=== PATIENT | male | born 1940 | race Caucasian/White ===

== ENCOUNTER → 2021-09-01 10:36 | Outpatient (CLI) | payer OTHER, SELFPAY ==
[2021-09-01 11:50] LABS: Add Manual Diff / Slide Review NO; Basophils Absolute Auto 0 /uL (0-100); Basophils Percent Auto 0.2 % (0-2); Eosinophils Absolute Auto 100 /uL (0-450); Eosinophils Percent Auto 0.9 % (2-4); Hematocrit 38.8 % (41-53); Hemoglobin 13.2 g/dL (13.5-17.5); Lymphocytes Absolute Auto 1000 /uL (1100-4500); Lymphocytes Percent Auto 16.2 % (25-40); Mean Corpuscular HGB Conc 33.9 % (30-36); Mean Corpuscular Hemoglobin 32.8 PG (26-34); Mean Corpuscular Volume 96.9 fL (80-100); Monocytes Absolute Auto 400 /uL (0-900); Monocytes Percent Auto 6.6 % (3-14); Neutrophils Absolute Auto 4500 /uL (1500-7000); Neutrophils Percent Auto 76.1 % (50-75); Platelet Count 126 X10^3/uL (150-400); Red Blood Cell Count 4.01 X10^6/uL (4.5-5.9); Red Cell Distribution Width 12.9 % (11.6-14.8); White Blood Cell Count 5.9 X10^3/uL (4.5-11.0)
[2021-09-01 12:03] LABS: Hemoglobin A1C% w Est Avg Glu 5.6 % (4.0-6.0)
[2021-09-01 12:04] LABS: Alanine Aminotransferase 18 IU/L (<50); Albumin 4.1 g/dL (3.5-5.0); Albumin Globulin Ratio 1.3 (1.0-2.8); Alkaline Phosphatase 71 U/L (38-126); Aspartate Aminotransferase 22 IU/L (17-59); BUN Creatinine Ratio 17.2 (6-22); Bilirubin Total 0.4 mg/dL (0.2-1.3); Blood Urea Nitrogen 17 mg/dL (9-20); Calcium 9.2 mg/dL (8.4-10.2); Carbon Dioxide 32 mmol/L (22-32); Chloride 102 mmol/L (98-107); Cholesterol 145 mg/dL (140-199); Estimated Glomerular Filt Rate > 60.0 mL/min (>60); Globulin 3.1 g/dL (1.7-4.1); Glucose 110 mg/dL (80-110); HDL Cholesterol 35 mg/dL (40-60); HEMOLYSIS < 15 (0-50); LDL Cholesterol Calculated 79 mg/dL (<100); Potassium 4.1 mmol/L (3.4-5.1); Sodium 142 mmol/L (137-145); Total Protein 7.2 g/dL (6.3-8.2); Triglycerides 154 mg/dL (35-150)
[2021-09-09 03:02] LABS: Levetiracetam Keppra < 1.0 ug/mL (10.0-40.0)
== END ==
PROVIDERS: Referring Provider Family Medicine; Visit Provider Family Medicine
DX: R56.9 Unspecified convulsions (principal); E78.2 Mixed hyperlipidemia; R73.01 Impaired fasting glucose
CPT/HCPCS: 36415; 80053; 80061; 80177; 83036; 85025

== ENCOUNTER → 2022-09-14 06:13 | Outpatient (ROUT) | payer OTHER, SELFPAY ==
[2022-09-14 06:51] LABS: Add Manual Diff / Slide Review NO; Basophils Absolute Auto 0 /uL (0-100); Basophils Percent Auto 0.4 % (0-2); Eosinophils Absolute Auto 100 /uL (0-450); Eosinophils Percent Auto 1.8 % (2-4); Hematocrit 35.7 % (41-53); Hemoglobin 12.2 g/dL (13.5-17.5); Lymphocytes Absolute Auto 700 /uL (1100-4500); Mean Corpuscular HGB Conc 34.1 % (30-36); Mean Corpuscular Hemoglobin 32.5 PG (26-34); Mean Corpuscular Volume 95.5 fL (80-100); Monocytes Absolute Auto 400 /uL (0-900); Monocytes Percent Auto 8.1 % (3-14); Neutrophils Absolute Auto 4100 /uL (1500-7000); Neutrophils Percent Auto 76.7 % (50-75); Platelet Count 108 X10^3/uL (150-400); Red Blood Cell Count 3.74 X10^6/uL (4.5-5.9); Red Cell Distribution Width 12.8 % (11.6-14.8); White Blood Cell Count 5.4 X10^3/uL (4.5-11.0)
[2022-09-14 07:01] LABS: Alanine Aminotransferase 39 IU/L (<50); Albumin 3.6 g/dL (3.5-5.0); Albumin Globulin Ratio 1.1 (1.0-2.8); Alkaline Phosphatase 72 U/L (38-126); Aspartate Aminotransferase 94 IU/L (17-59); BUN Creatinine Ratio 25.8 (6-22); Bilirubin Total 0.6 mg/dL (0.2-1.3); Blood Urea Nitrogen 23 mg/dL (9-20); Calcium 8.4 mg/dL (8.4-10.2); Carbon Dioxide 26 mmol/L (22-32); Chloride 101 mmol/L (98-107); Estimated Glomerular Filt Rate > 60 mL/min (>60); Globulin 3.2 g/dL (1.7-4.1); Glucose 99 mg/dL (80-110); HEMOLYSIS < 15 (0-50); Potassium 3.4 mmol/L (3.4-5.1); Sodium 137 mmol/L (137-145); Total Protein 6.8 g/dL (6.3-8.2)
[2022-09-14 07:46] LABS: Thyroid Stimulating Hormone 2.66 uIU/mL (0.47-4.68)
[2022-09-14 07:49] LABS: Vitamin B12 347 pg/mL (239-931)
== END ==
PROVIDERS: Visit Provider Nurse Practitioner Family
DX: R41.0 Disorientation, unspecified (principal)
CPT/HCPCS: 36415; 80053; 82607; 84443; 85025

== ENCOUNTER → 2023-06-07 07:19 | Outpatient (ROUT) | payer OTHER, SELFPAY ==
[2023-06-07 08:24] LABS: Add Manual Diff / Slide Review NO; Basophils Absolute Auto 0 /uL (0-100); Basophils Percent Auto 0.3 % (0-2); Eosinophils Absolute Auto 100 /uL (0-450); Eosinophils Percent Auto 1.9 % (2-4); Hematocrit 35.6 % (41-53); Hemoglobin 12.4 g/dL (13.5-17.5); Lymphocytes Absolute Auto 900 /uL (1100-4500); Lymphocytes Percent Auto 12.8 % (25-40); Mean Corpuscular HGB Conc 34.8 % (30-36); Mean Corpuscular Hemoglobin 32.7 PG (26-34); Mean Corpuscular Volume 93.9 fL (80-100); Monocytes Absolute Auto 500 /uL (0-900); Monocytes Percent Auto 7.4 % (3-14); Neutrophils Absolute Auto 5300 /uL (1500-7000); Neutrophils Percent Auto 77.6 % (50-75); Platelet Count 116 X10^3/uL (150-400); Red Blood Cell Count 3.79 X10^6/uL (4.5-5.9); Red Cell Distribution Width 13.2 % (11.6-14.8); White Blood Cell Count 6.8 X10^3/uL (4.5-11.0)
[2023-06-07 08:36] LABS: Alanine Aminotransferase 19 IU/L (<50); Albumin 3.9 g/dL (3.5-5.0); Albumin Globulin Ratio 1.3 (1.0-2.8); Alkaline Phosphatase 94 U/L (38-126); Aspartate Aminotransferase 22 IU/L (17-59); BUN Creatinine Ratio 21.5 (6-22); Bilirubin Total 0.4 mg/dL (0.2-1.3); Blood Urea Nitrogen 23 mg/dL (9-20); Calcium 8.6 mg/dL (8.4-10.2); Carbon Dioxide 29 mmol/L (22-32); Chloride 104 mmol/L (98-107); Estimated Glomerular Filt Rate > 60 mL/min (>60); Globulin 3.1 g/dL (1.7-4.1); Glucose 98 mg/dL (80-110); HEMOLYSIS < 15 (0-50); Sodium 138 mmol/L (137-145)
[2023-06-07 09:00] LABS: Thyroid Stimulating Hormone 2.98 uIU/mL (0.47-4.68)
[2023-06-07 09:20] LABS: Vitamin B12 396 pg/mL (239-931)
== END ==
PROVIDERS: Visit Provider Nurse Practitioner Family
DX: F03.90 Unspecified dementia, unspecified severity, without behavioral disturbance, psychotic disturbance, mood disturbance, and anxiety (principal); R41.0 Disorientation, unspecified; R53.83 Other fatigue
CPT/HCPCS: 36415; 80053; 82306; 82607; 84443; 85025

== ENCOUNTER → 2024-07-24 06:08 | Outpatient (ROUT) | payer OTHER, SELFPAY ==
[2024-07-24 07:08] LABS: Hemoglobin 11.7 g/dL (13.5-17.5); Mean Corpuscular HGB Conc 34.5 % (30-36); Mean Corpuscular Hemoglobin 31.2 PG (26-34); Mean Corpuscular Volume 90.3 fL (80-100); Platelet Count 163 X10^3/uL (150-400); Red Blood Cell Count 3.77 X10^6/uL (4.5-5.9); Red Cell Distribution Width 14.4 % (11.6-14.8); White Blood Cell Count 6.6 X10^3/uL (4.5-11.0)
[2024-07-24 07:13] LABS: Alanine Aminotransferase 26 IU/L (<50); Albumin 3.3 g/dL (3.5-5.0); Alkaline Phosphatase 82 U/L (38-126); Aspartate Aminotransferase 27 IU/L (17-59); BUN Creatinine Ratio 20.6 (6-22); Bilirubin Total 0.5 mg/dL (0.2-1.3); Blood Urea Nitrogen 20 mg/dL (9-20); Carbon Dioxide 27 mmol/L (22-32); Chloride 103 mmol/L (98-107); Estimated Glomerular Filt Rate > 60 mL/min (>60); Globulin 3.2 g/dL (1.7-4.1); Glucose 93 mg/dL (80-110); HEMOLYSIS 20 (0-50); Sodium 134 mmol/L (137-145); Total Protein 6.5 g/dL (6.3-8.2)
[2024-07-24 07:44] LABS: Thyroid Stimulating Hormone 2.77 uIU/mL (0.47-4.68)
[2024-07-24 19:47] LABS: Vitamin B12 469 pg/mL (239-931)
== END ==
PROVIDERS: Visit Provider Nurse Practitioner Family
DX: R41.0 Disorientation, unspecified (principal)
CPT/HCPCS: 36415; 80053; 82607; 84443; 85027

== ENCOUNTER 2024-10-06 04:53 | Inpatient (IN) | payer OTHER, SELFPAY ==
[2024-10-06] VITALS (10 sets, daily range): BP systolic 122–147; BP diastolic 74–90; PULSE 77–100; RESP 15–20; TEMP 36.5–36.6; O2SAT 92–94; BMI 28.0
--- NOTE | 2024-10-06 04:52 | ED.AMS ---
HPI - Altered Mental Status General Chief Complaint: Unresponsive Stated Complaint: unresponsive Time Seen by Provider: 10/06/24 05:09 History of Present Illness HPI narrative: 83-year-old male with a history of CVA with left-sided hemiplegia hemiparesis presents to the emergency department via EMS from facility for evaluation of altered mental status possible stroke. They states that 1 hour prior to arrival patient was unresponsive not responding to verbal stimuli but responding to painful stimuli GCS 9. States that there was also new facial droop according to the facility. At time of evaluation patient with left-sided residual hemiparesis hemiplegia, no appreciable left facial droop, patient is responding to painful stimuli to the bilateral lower extremities as well as right upper extremity, patient does open eyes to verbal stimuli. Additional ROS HPI limited given patient's mental status change. Review of Systems Review of Systems ROS Unobtainable: Unobtainable due to mental status/LOC Exam Narrative Exam Narrative: General: Elderly HEENT: Normocephalic, atraumatic, PERRLA, normal sclera, eyelids normal, Neck: atraumatic Chest: Normal to inspection, negative crepitus, no overlying erythema ecchymosis Respiratory: Normal respiratory effort, not in acute respiratory distress, clear to auscultation bilaterally negative cough, wheeze, tachypnea, rhonchi, rales Cardiology: Regular rate rhythm negative gallop, murmur, rubs GI/: Normal to inspection, soft, nonrigid, no tenderness to palpation, exam deferred MSK: Patient with left-sided upper and lower extremity residual deficits from previous stroke, Skin: No rashes lesions noted Neuro: Patient responding to painful stimuli to bilateral right and lower extremity. Opening eyes to sound, does make some mumbling Psych: Cooperative, negative suicidal or homicidal ideations Initial Vital Signs Initial Vital Signs: Vital Signs Temperature 97.7 F 10/06/24 04:54 Pulse Rate 99 H 10/06/24 04:54 Respiratory Rate 16 10/06/24 04:54 Blood Pressure 147/81 H 10/06/24 04:54 Pulse Oximetry 93 10/06/24 04:54 Oxygen Delivery Method Room Air 10/06/24 04:54 Scores NIH Stroke Scale Level of Conciousness: Not alert, requires repeated stimulation to attend, or is obtunded Ask month/age: Answers neither question correctly, aphasic, stuporous, coma Open/close eyes, close hand: Performs one task correctly Best gaze horizontal: Normal Visual romero: No visual loss Facial palsy: Minor paralysis, flattened nasolabial fold, asymmetry on smiling Left arm drift: Drifts down, not to bed Right arm drift: Drifts down, not to bed Left leg drift: Drifts down, not to bed Right leg drift: Drifts down, not to bed Limb ataxia: Absent Sensory on face/arms/legs: Normal, no sensory loss Best language: Mute, global aphasia Dysarthria: Mild to mod,some slurring Extinction or inattention: No abnormality Total NIH Stroke scale score: 14 Course Orders Ordered: ED Orders 10/06/24 04:55 Complete Blood Count AUTO DIFF Stat Comprehensive Metabolic Panel Stat Ethanol (ETOH) Stat PTT Partial Thromboplastin Pieter Stat Prothrombin Time INR Stat Troponin & CK Cardiac Panel Stat 10/06/24 05:[address] angio head and neck Stat Urinalysis and Microscopic Stat Urine Drug Screen, Rapid Stat EKG-12 Lead Stat Vital Signs Vital signs: Vital Signs - 8 hr 10/06/24 04:54 10/06/24 04:57 10/06/24 04:58 Temperature 97.7 F Pulse Rate 99 H 100 H 100 H Respiratory Rate 16 Blood Pressure 147/81 H Pulse Oximetry 93 92 92 Oxygen Delivery Method Room Air 10/06/24 04:58 10/06/24 05:00 10/06/24 05:00 Temperature Pulse Rate 93 H Respiratory Rate 15 Blood Pressure 147/81 H 131/76 Pulse Oximetry 92 Oxygen Delivery Method 10/06/24 05:25 10/06/24 05:25 10/06/24 05:30 Temperature Pulse Rate 92 H 91 H Respiratory Rate 19 20 Blood Pressure 140/74 Pulse Oximetry 93 92 Oxygen Delivery Method 10/06/24 05:37 10/06/24 05:37 10/06/24 06:00 Temperature Pulse Rate 90 88 Respiratory Rate 18 16 Blood Pressure 122/81 Pulse Oximetry 92 94 Oxygen Delivery Method 10/06/24 06:01 10/06/24 06:01 Temperature Pulse Rate 90 Respiratory Rate 18 Blood Pressure 141/83 H Pulse Oximetry 93 Oxygen Delivery Method MDM - Altered Mental Status Differential Diagnosis Differential diagnosis: Likely altered mental status, dementia, hypoglycemia, subarachnoid hemorrhage and sepsis (CVA) Lab Data 10/06/24 04:55 10/06/24 04:55 Labs: Lab Results 10/06/24 Range/Units 04:55 WBC 9.0 (4.5-11.0) X10^3/uL RBC 3.92 L (4.5-5.9) X10^6/uL Hgb 12.2 L (13.5-17.5) g/dL Hct 36.2 L (41-53) % MCV 92.4 (80-100) fL MCH 31.0 (26-34) PG MCHC 33.6 (30-36) % RDW 13.9 (11.6-14.8) % Plt Count 156 (150-400) X10^3/uL Neut % (Auto) 75.6 H (50-75) % Lymph % (Auto) 14.1 L (25-40) % [place] % (Auto) 8.7 (3-14) % Eos % (Auto) 1.2 L (2-4) % Baso % (Auto) 0.4 (0-2) % Neut # (Auto) 6800 (5049-7365) /uL Lymph # (Auto) 1300 (6926-9291) /uL [place] # (Auto) 800 (0-900) /uL Eos # (Auto) 100 (0-450) /uL Baso # (Auto) 0 (0-100) /uL PT 13.8 H (9.4-12.5) SECONDS INR 1.2 (0.9-1.3) APTT 30 (25.1-36.5) SECONDS Sodium 134 L (137-145) mmol/L Potassium 4.1 (3.4-5.1) mmol/L Chloride 100 (98-107) mmol/L Carbon Dioxide 18 L (22-32) mmol/L BUN 22 H (9-20) mg/dL Creatinine 1.28 H (0.66-1.25) mg/dL Estimated GFR 55 L (>60) mL/min BUN/Creatinine Ratio 17.2 (6-22) Glucose 141 H (80-110) mg/dL Calcium 9.3 (8.4-10.2) mg/dL Total Bilirubin 0.7 (0.2-1.3) mg/dL AST 36 (17-59) IU/L ALT 31 (<50) IU/L Alkaline Phosphatase 81 (38-126) U/L Total Creatine Kinase 283 H (55-170) U/L Troponin I < 0.012 (0.01-0.034) ng/mL Total Protein 7.6 (6.3-8.2) g/dL Albumin 4.3 (3.5-5.0) g/dL Globulin 3.3 (1.7-4.1) g/dL Albumin/Globulin Ratio 1.3 (1.0-2.8) Ethyl Alcohol < 10 ( - 10) mg/dL Point of Care Testing Glucose POC [address] scan - head: Radiologist's Impression: Preliminary read showing acute intraparenchymal hemorrhage within the posterior parietal region measuring 4 x 4.8 cm with adjacent surrounding edema. Shift of midline structures to the left measuring 4 mm. Blood products within the bilateral occipital horns CTA - brain/neck: Radiologist's Impression: Preliminary read showing large right parietal intraparenchymal hemorrhage with surrounding edema shift of midline structures to the left no evidence of aneurysm AVM or significant vascular occlusive disease, arteriosclerosis of the carotid bulbs without significant stenosis or aneurysm no dissection MDM Narrative Medical decision making narrative: 83-year-old male with a history of CVA with left-sided hemiplegia hemiparesis, brought in from facility for evaluation of altered mental status. 1 hour prior to arrival patient was noted to have a possible new left facial droop, also patient not responding to verbal cue according to medics. I had a discussion with the son who states that father's normally alert and oriented is able to follow commands and hold a conversation. Therefore additional ROS and HPI was limited at initial evaluation. At time of initial evaluation patient with a NIH of 14. To note, there was a slight delay in calling code stroke upon initial patient presentation given the fact that patient with POLST form stating limited/comfort measures only, therefore I contacted the patient's [id number] who is his son, (Latrell Lind) to discuss how aggressive he would like us to be here given the possibility of a new stroke. The son states that if he were to have another stroke he would like to have the tPA administered, I did discuss the risks and benefits of administering the medication he verbalized understanding of this and would like to pursue this route if deemed necessary, therefore stroke alert was called immediately after getting off the phone with the patients son. 0520: I had a lengthy conversation with the patient's son again, Diogo Medellin, informed him that the patients CT scan did show a significant large intracranial hemorrhage, I asked him if he would like to purusue further agressive measures and have us reach out to neurosurgery and surrounding hospitals and potentially have him transfered there for further evaluation and treatment, the son states that he would not want to pursue any other additional aggressive measures at this time, states that he does not want to pursue surgery or any other additional aggressive measures at this time, he states that he understands that this would require patient to pursue palliative/comfort care measures, he understands and agrees with this plan. Call placed to hospitalist for admission for comfort care 0540: Son Diogo here bedside, still agreeable to current plan for admission for comfort care. At time of re-evaluation patient appearing to be more alert. He is now moving his head and tracking to sound. Patient with slightly improved mentation but still not conversing, just making audible mumbling sounds. 0624: The patient's management plan was discussed Dr. Sun, who agrees to admit the patient to their service and assumes care of this patient at this time. Full admission orders will be placed by the primary team. Discharge Plan Departure Patient Disposition: Admitted As Inpatient Clinical Impression: Need for comfort care, Intracranial hemorrhage
--- NOTE | 2024-10-06 05:08 | DI.CT.S_ITS ---
PROCEDURE: CT STROKE INDICATIONS: new left facial droop, hx of cva TECHNIQUE: Noncontrast 4.5 mm thick angled axial sections acquired from the foramen magnum to the vertex, with coronal reformats. For radiation dose reduction, the following was used: automated exposure control, adjustment of mA and/or kV according to patient size. COMPARISON: None. FINDINGS: Image quality: Diagnostic. CSF spaces: Basal cisterns are patent. No extra-axial fluid collections. The ventricles are symmetric in size and shape. Hyperdense material is noted in bilateral occipital horns. Brain: There is and acute intraparenchymal hematoma involving right parietal region is seen measures up to 3.8 x 4.7 x 5.2 cm in largest transverse, AP and craniocaudal dimensions series 2, image 19 and series 4, image 26. Extensive surrounding vasogenic edema is seen. There is of to 4 mm midline shift to the left. There is cerebral volume loss for age, with resultant ventricular and sulcal prominence. There are periventricular and deep white matter chronic small vessel ischemic changes. There is intracranial internal carotid artery atherosclerosis. Skull and face: Calvarium and visualized facial bones appear intact, without suspicious lesions. Sinuses: Visualized sinuses and mastoids are clear. IMPRESSION: 1. Acute intraparenchymal hemorrhage involving right posterior parietal region with extensive surrounding vasogenic edema and up to 4 mm midline shift to the left. 2. Blood is also seen in bilateral occipital horns. No significant discrepancies from preliminary reading. This study fulfills neurological imaging criteria for inclusion or exclusion of acute stroke therapies based on available published neurological guidelines. Dictated by: Saul Osborne M.D. on 10/06/2024 at 8:08 Approved by: Saul Osborne M.D. on 10/06/2024 at 8:13
--- NOTE | 2024-10-06 05:08 | DI.CT.S_ITS ---
PROCEDURE: CT ANGIO HEAD AND NECK INDICATIONS: new left facial droop, hx of cva TECHNIQUE: After the administration of intravenous contrast, 1 mm thick sections acquired from the aortic arch through the [place]. 3-dimensional dxngjmp-mmhtfsarv-nuhqgjdprw (MIP) and/or volume rendering reformats were acquired of the central intracranial vasculature and neck separately. For radiation dose reduction, the following was used: automated exposure control, adjustment of mA and/or kV according to patient size. COMPARISON: None. FINDINGS: Image quality: Diagnostic. BRAIN: CSF spaces: Ventricles are normal in size and shape. Basal cisterns are patent. No extra-axial fluid collections. Brain: Large right parietal hematoma is seen with up to 4 mm midline shift to the left better evaluated on dedicated CT head study. No area of abnormal intracranial enhancement is seen. Skull and face: Calvarium and facial bones appear intact, without suspicious lesions. Orbits appear normal. Sinuses: Sinuses and mastoids are clear. HEAD CT ANGIOGRAPHY: Anterior circulation: Intracranial internal carotid arteries are normal in size and flow. The flow within the paired anterior cerebral arteries is normal and symmetric. The flow within the middle cerebral arteries is normal and symmetric. The anterior communicating artery is seen. No aneurysms are seen. Posterior circulation: Visualized portions of the vertebral arteries demonstrate normal caliber, and join to form a normal appearing basilar artery. Flow within the posterior cerebral arteries is normal and symmetric. No aneurysms are seen. NECK CT ANGIOGRAPHY: Carotid system: The great vessels demonstrate a conventional anatomy as they arise from the aortic arch. The origins of the common carotid arteries appear patent. The common carotid arteries demonstrate normal caliber and courses. The bifurcation regions are both widely patent. The internal carotid arteries demonstrate normal calibers and courses. Posterior circulation: The origins of the vertebral arteries both appear widely patent. The more superior extracranial portions of both vertebral arteries also demonstrate normal courses and calibers. They join to form a normal appearing basilar artery. Soft tissues: Visualized neck soft tissues demonstrate no suspicious abnormalities. Bones: No suspicious bony lesions. Visualized cervical spine appears normally aligned. IMPRESSION: 1. No significant intracranial arterial abnormality is seen. 2. No significant abnormality is seen within the arteries of the neck. 3. No area of abnormal intracranial enhancement. Large right parietal intraparenchymal hematoma better evaluated on dedicated CT head study from the same day. Any quantitative measurements of stenosis were performed using NASCET criteria. Dictated by: Saul Osborne M.D. on 10/06/2024 at 8:14 Approved by: Saul Osborne M.D. on 10/06/2024 at 8:16
[2024-10-06 05:15] LABS: Add Manual Diff / Slide Review NO; Basophils Absolute Auto 0 /uL (0-100); Basophils Percent Auto 0.4 % (0-2); Eosinophils Absolute Auto 100 /uL (0-450); Eosinophils Percent Auto 1.2 % (2-4); Hematocrit 36.2 % (41-53); Hemoglobin 12.2 g/dL (13.5-17.5); Lymphocytes Absolute Auto 1300 /uL (1100-4500); Lymphocytes Percent Auto 14.1 % (25-40); Mean Corpuscular HGB Conc 33.6 % (30-36); Mean Corpuscular Volume 92.4 fL (80-100); Monocytes Absolute Auto 800 /uL (0-900); Monocytes Percent Auto 8.7 % (3-14); Neutrophils Absolute Auto 6800 /uL (1500-7000); Neutrophils Percent Auto 75.6 % (50-75); Platelet Count 156 X10^3/uL (150-400); Red Blood Cell Count 3.92 X10^6/uL (4.5-5.9); Red Cell Distribution Width 13.9 % (11.6-14.8)
[2024-10-06 05:16] LABS: INR 1.2 (0.9-1.3); Prothrombin Time 13.8 SECONDS (9.4-12.5)
[2024-10-06 05:19] LABS: PTT Partial Thromboplastin Tim 30 SECONDS (25.1-36.5)
[2024-10-06 05:21] LABS: Alanine Aminotransferase 31 IU/L (<50); Albumin 4.3 g/dL (3.5-5.0); Albumin Globulin Ratio 1.3 (1.0-2.8); Alkaline Phosphatase 81 U/L (38-126); Aspartate Aminotransferase 36 IU/L (17-59); BUN Creatinine Ratio 17.2 (6-22); Bilirubin Total 0.7 mg/dL (0.2-1.3); Blood Urea Nitrogen 22 mg/dL (9-20); Calcium 9.3 mg/dL (8.4-10.2); Carbon Dioxide 18 mmol/L (22-32); Chloride 100 mmol/L (98-107); Creatine Kinase 283 U/L (55-170); Estimated Glomerular Filt Rate 55 mL/min (>60); Ethanol (ETOH) < 10 mg/dL; Globulin 3.3 g/dL (1.7-4.1); Glucose 141 mg/dL (80-110); HEMOLYSIS < 15 (0-50); Potassium 4.1 mmol/L (3.4-5.1); Sodium 134 mmol/L (137-145); Total Protein 7.6 g/dL (6.3-8.2)
[2024-10-06 05:32] LABS: Troponin I < 0.012 ng/mL (0.01-0.034)
--- NOTE | 2024-10-06 05:33 | PC.NURSE ---
Talked to caregiver from [facility], she states she was near his room about 0430 when she heard him squeal and his breathing became labored, when she came into his room, pt was unresponsive and had blood coming from his mouth. Caregiver denies any seizure like activity.
--- NOTE | 2024-10-06 05:42 | PC.NURSE ---
Son at bedside
--- NOTE | 2024-10-06 06:44 | P.HP_ITS ---
History of Present Illness History of Present Illness Date Patient Seen: 10/06/24 Time Patient Seen: 07:00 Chief complaint: unresponsive Narrative: 83 y/o brought by an ambulance with altered mental status and unresponsiveness and diagnosed with large right hemispheric brain bleed, midline shift of 4 mm. PMH of CVA with Lt hemiparesis. Admitted for comfort care. Review of Systems Review of Systems Narrative: unobtainable Exam Vital Signs (past 8 hours): - 10/06/24 04:54 10/06/24 04:57 10/06/24 04:58 Temperature 97.7 F Pulse Rate 99 H 100 H 100 H Respiratory Rate 16 Blood Pressure 147/81 H Pulse Oximetry 93 92 92 Oxygen Delivery Method Room Air 10/06/24 04:58 10/06/24 05:00 10/06/24 05:00 Temperature Pulse Rate 93 H Respiratory Rate 15 Blood Pressure 147/81 H 131/76 Pulse Oximetry 92 Oxygen Delivery Method 10/06/24 05:25 10/06/24 05:25 10/06/24 05:30 Temperature Pulse Rate 92 H 91 H Respiratory Rate 19 20 Blood Pressure 140/74 Pulse Oximetry 93 92 Oxygen Delivery Method 10/06/24 05:37 10/06/24 05:37 10/06/24 06:00 Temperature Pulse Rate 90 88 Respiratory Rate 18 16 Blood Pressure 122/81 Pulse Oximetry 92 94 Oxygen Delivery Method 10/06/24 06:01 10/06/24 06:01 Temperature Pulse Rate 90 Respiratory Rate 18 Blood Pressure 141/83 H Pulse Oximetry 93 Oxygen Delivery Method Oxygen Delivery Method Room Air Const Other: in no distress, son at bedside HENMT Other: atraumatic Neck Other: supple Resp Other: normal respiratory effort Neuro Other: aphasic, cognitive deficits, Lt hemniparesis Objective Labs 10/06/24 04:55 10/06/24 04:55 Labs: Laboratory Results - last 24 hr 10/06/24 04:55 WBC 9.0 RBC 3.92 L Hgb 12.2 L Hct 36.2 L MCV 92.4 MCH 31.0 MCHC 33.6 RDW 13.9 Plt Count 156 Neut % (Auto) 75.6 H Lymph % (Auto) 14.1 L [place] % (Auto) 8.7 Eos % (Auto) 1.2 L Baso % (Auto) 0.4 Neut # (Auto) 6800 Lymph # (Auto) 1300 [place] # (Auto) 800 Eos # (Auto) 100 Baso # (Auto) 0 PT 13.8 H INR 1.2 APTT 30 Sodium 134 L Potassium 4.1 Chloride 100 Carbon Dioxide 18 L BUN 22 H Creatinine 1.28 H Estimated GFR 55 L BUN/Creatinine Ratio 17.2 Glucose 141 H Calcium 9.3 Total Bilirubin 0.7 AST 36 ALT 31 Alkaline Phosphatase 81 Total Creatine Kinase 283 H Troponin I < 0.012 Total Protein 7.6 Albumin 4.3 Globulin 3.3 Albumin/Globulin Ratio 1.3 Ethyl Alcohol < 10 Assessment & Plan Assessment and plan (1) Intracranial hemorrhage: Status: Acute Assessment & Plan narrative: Rt Hemispheric Intraparenchymal Hemorrhage - comfort care, in accordance with patient's and son's wishes - Keppra load 1 g - prn Ativan for seizures - morphine for pain - poor prognosis Time-Based Coding :: [TOTAL MINUTES] spent with patient and on the chart (including review of chart, obtaining history, exam, reviewing outside data, placing orders, documenting exam and treatment plan, and counseling patient) on [DATE].
--- NOTE | 2024-10-06 08:52 | CM.DANOTE ---
Initial DCP Assessment Note Pt is a 83 yo male, resident at [facility], arrives from facility for altered mental status and new facial droop, imaging shows large brain bleed. Patient unresponsive and admitted for comfort care. PCP: Gayathri Burks Payer: Rao PEREYRA Reviewed chart, patient admitted for symptom management and comfort care, expected not to survive this hospitalization. Bernardo Lind at bedside. Aware and agreeable to plan of care. CM team will plan to follow clinical course closely in case any DC needs or concerns arise. LETY Leal Discharge Planning/Care Management CM Discharge Assessment Start: 10/06/24 08:36 Freq: Status: Active Protocol: Document 10/06/24 08:37 ANTOINETTE (Rec: 10/06/24 08:52 ANTOINETTE [id number]) Discharge Planning Assessment Assigned Hand Packer LETY Escobar DPOA/Assigned Designee Name Bernardo Sams Contact Information P [phone] Advance Directives? Yes History Provided By Family Member,Medical Record Prior Living Arrangements Assisted Living Household Members other Type of transporation used prior to Relies on Others admit Willing to Return to Facility? Patient is expected not to survive the hospitalization Independent with ADL's No Is patient alert and oriented? Unknown at this time Barriers to Discharge Yes Comment Patient is on comfort care and not expected to survive this hospitalization. Discharge Plan Pt expected to in Hospital Referrals Initiated None needed Review Status In Process
[2024-10-06] MEDS: levETIRAcetam 1,000 MG in SODIUM CHLORIDE 0.9% 100 ML 440 MG IV (09:39)
--- NOTE | 2024-10-06 12:38 | P.HP_ITS ---
History of Present Illness History of Present Illness Date Patient Seen: 10/06/24 Time Patient Seen: 08:30 Date of Onset of Symptoms: 10/06/24 Chief complaint: unresponsive Narrative: 83 y/o brought by an ambulance with altered mental status and unresponsiveness and diagnosed with large right hemispheric brain bleed, midline shift of 4 mm. PMH of CVA with Lt hemiparesis. Admitted for comfort care. Interval history: The patient is son Diogo holds power of consumer attorney and states that his father has had progressive decline in the past year, with increased confusion and delusional thinking. 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 Last night he was found to be gurgling with blood coming out of his mouth and increased confusion, and was brought to the emergency department, where he had decreased level of responsiveness. He is since woken up and answers simple questions, stating his name, able to state his son's name, but otherwise with limited understanding of his current situation. It was felt in the emergency department that he may have had a seizure leading to his initial presentation and was given 1 g of IV levetiracetam. Family still wishes comfort care measures after discussion of his current clinical status [facility] Social History household members: other Meds Home Medications and Allergies Home Medications Medication Instructions Recorded Confirmed Type acetaminophen 500 mg tablet 500 mg PO 4XD Pain 10/06/24 10/06/24 History aspirin 325 mg tablet,delayed 325 mg PO DAILY 10/06/24 10/06/24 History release carbamide peroxide 6.5 % ear drops 5 drp EAR-BOTH 2XD 10/06/24 10/06/24 History (Ear Drops (carbamide peroxide)) cholecalciferol (vitamin D3) 25 25 mcg PO DAILY 10/06/24 10/06/24 History mcg (1,000 unit) tablet (Vitamin D3) simvastatin 40 mg tablet 40 mg PO ONCE PM 10/06/24 10/06/24 History Allergies Allergy/AdvReac Type Severity Reaction Status Date / Time phenytoin Allergy Unknown unknown Verified 10/06/24 08:47 Review of Systems Review of Systems ROS: Yes All systems reviewed with the patient and are negative except as otherwise documented Exam Vital Signs (past 8 hours): - 10/06/24 04:54 10/06/24 04:57 10/06/24 04:58 Temperature 97.7 F Pulse Rate 99 H 100 H 100 H Respiratory Rate 16 Blood Pressure 147/81 H Pulse Oximetry 93 92 92 Oxygen Delivery Method Room Air 10/06/24 04:58 10/06/24 05:00 10/06/24 05:00 Temperature Pulse Rate 93 H Respiratory Rate 15 Blood Pressure 147/81 H 131/76 Pulse Oximetry 92 Oxygen Delivery Method 10/06/24 05:25 10/06/24 05:25 10/06/24 05:30 Temperature Pulse Rate 92 H 91 H Respiratory Rate 19 20 Blood Pressure 140/74 Pulse Oximetry 93 92 Oxygen Delivery Method 10/06/24 05:37 10/06/24 05:37 10/06/24 06:00 Temperature Pulse Rate 90 88 Respiratory Rate 18 16 Blood Pressure 122/81 Pulse Oximetry 92 94 Oxygen Delivery Method 10/06/24 06:01 10/06/24 06:01 10/06/24 06:40 Temperature 97.8 F Pulse Rate 90 77 Respiratory Rate 18 18 Blood Pressure 141/83 H 141/90 H Pulse Oximetry 93 Oxygen Delivery Method Oxygen Delivery Method Room Air Narrative Exam Narrative: GENERAL: This is a well-nourished, well-developed patient, in no apparent distress. HEAD: Atraumatic. Normocephalic. No temporal or scalp tenderness. EYES: Pupils equal round and reactive. Extraocular motions intact. No scleral icterus. No injection or drainage. ENT: Mucous membranes pink and moist. NECK: Trachea midline. No JVD, bruits or lymphadenopathy. Supple, nontender, no meningeal signs. CARDIOVASCULAR: Regular rate and rhythm without murmurs, gallops, or rubs. RESPIRATORY: Clear to auscultation. GASTROINTESTINAL: Abdomen soft, non-tender, nondistended. EXTREMITIES: No clubbing, cyanosis, or edema. BACK: Nontender without deformity or crepitance. No flank tenderness. NEUROLOGIC: Alert, oriented to person only, speech limited, chronic left arm and leg hemiparesis with left arm flexion contracture. DERMATOLOGIC: No rashes or skin lesions. Objective Imaging *: Radiologist's impression: 1. Brain CT: 1. Acute intraparenchymal hemorrhage involving right posterior parietal region with extensive surrounding vasogenic edema and up to 4 mm midline shift to the left. 2. Blood is also seen in bilateral occipital horns. 2. Head/neck CT angiography: 1. No significant intracranial arterial abnormality is seen. 2. No significant abnormality is seen within the arteries of the neck. 3. No area of abnormal intracranial enhancement. Large right parietal intraparenchymal hematoma better evaluated on dedicated CT head study from the same day. Labs 10/06/24 04:55 10/06/24 04:55 Labs: Laboratory Results - last 24 hr 10/06/24 04:55 WBC 9.0 RBC 3.92 L Hgb 12.2 L Hct 36.2 L MCV 92.4 MCH 31.0 MCHC 33.6 RDW 13.9 Plt Count 156 Neut % (Auto) 75.6 H Lymph % (Auto) 14.1 L [place] % (Auto) 8.7 Eos % (Auto) 1.2 L Baso % (Auto) 0.4 Neut # (Auto) 6800 Lymph # (Auto) 1300 [place] # (Auto) 800 Eos # (Auto) 100 Baso # (Auto) 0 PT 13.8 H INR 1.2 APTT 30 Sodium 134 L Potassium 4.1 Chloride 100 Carbon Dioxide 18 L BUN 22 H Creatinine 1.28 H Estimated GFR 55 L BUN/Creatinine Ratio 17.2 Glucose 141 H Calcium 9.3 Total Bilirubin 0.7 AST 36 ALT 31 Alkaline Phosphatase 81 Total Creatine Kinase 283 H Troponin I < 0.012 Total Protein 7.6 Albumin 4.3 Globulin 3.3 Albumin/Globulin Ratio 1.3 Ethyl Alcohol < 10 Assessment & Plan Assessment & Plan narrative: Rt Hemispheric Intraparenchymal Hemorrhage in the same region as prior right hemispheric stroke - comfort care, in accordance with patient's and son's wishes - Keppra load 1 g followed by 500 mg IV q.12 hours - prn Ativan for seizures - morphine for pain - poor prognosis Code status: Do not resuscitate/comfort care [facility] Charge Codes Initial inpatient/observation care: 17041
--- NOTE | 2024-10-06 13:35 | PC.NURSE ---
Day shift: Notified MD Angulo that patient is unable to swallow sips of water without coughing. Continued with small teaspoons of water after oral care. MD Angulo stated he discussed with patient's family and they do not want IV fluids. COOK 3 PASTRY consult ordered. Pt able to answer yes/no questions and is arousable to voice. Unable to state name or anything other than yes or no at this time. Will continue to monitor.
[2024-10-06 14:29] LABS: Appearance Urine UA CLEAR; Bilirubin Urine UA NEGATIVE (NEGATIVE); Color Urine UA YELLOW; Glucose Urine UA NEGATIVE (Negative); Ketones Urine UA NEGATIVE (NEGATIVE); Leukocyte Esterase Urine UA NEGATIVE (NEGATIVE); Nitrite Urine UA NEGATIVE (Negative); Occult Blood Urine UA 1+ (Negative); Protein Urine UA 2+ (Negative)
[2024-10-06 14:37] LABS: Bacteria Urine Few (2-10); Culture Indicated Urine Cult Not Indicated; Mucus Urine 1+ (Negative); RBC Urine 1-5/HPF (0-5/HPF); Squamous Epithelial Cell Urine 1-5 /HPF (0-5/HPF); Urine Volume 10mL (spun); WBC Urine 0-1/HPF (0-5/HPF)
[2024-10-06] MEDS: levETIRAcetam 500 MG in SODIUM CHLORIDE 0.9% 100 ML 420 MG IV (20:52)
--- NOTE | 2024-10-07 07:27 | PM.PN.1 ---
Subjective Subjective Interval history: From H&P: 83 y/o brought by an ambulance with altered mental status and unresponsiveness and diagnosed with large right hemispheric brain bleed, midline shift of 4 mm. PMH of CVA with Lt hemiparesis. Admitted for comfort care. Interval history: The patient is son Diogo holds power of senior trial attorney and states that his father has had progressive decline in the past year, with increased confusion and delusional thinking. 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 Last night he was found to be gurgling with blood coming out of his mouth and increased confusion, and was brought to the emergency department, where he had decreased level of responsiveness. He is since woken up and answers simple questions, stating his name, able to state his son's name, but otherwise with limited understanding of his current situation. It was felt in the emergency department that he may have had a seizure leading to his initial presentation and was given 1 g of IV levetiracetam. Family still wishes comfort care measures after discussion of his current clinical status S: The patient is not speaking, can open his eyes and follow commands. Nystagmus to the right. I met with the sons, they do reiterate that he does not want her any heroic measures. They were somewhat hopeful by his rousing this morning, however I have explained the natural course of this issue of intracranial hemorrhage and note that his prognosis remains very poor. They want to support his decisions and he will continue to be comfort based care with analgesics as needed and no enteral support. Exam Vital Signs (past 8 hours): Oxygen Delivery Method Room Air Narrative Exam Narrative: Somnolent, opens eyes and can speak a little bit when asked questions. Nystagmus to the right. Lungs are clear, normal rate and effort. Heart is regular, no murmur gallop or rub. Abdomen is soft, non distended. Extremities are free of edema. No spontaneous movement of arms or legs. No posturing. Objective Imaging CT scan - head: Radiologist's impression: Brain CT: 1. Acute intraparenchymal hemorrhage involving right posterior parietal region with extensive surrounding vasogenic edema and up to 4 mm midline shift to the left. 2. Blood is also seen in bilateral occipital horns. 2. Head/neck CT angiography: 1. No significant intracranial arterial abnormality is seen. 2. No significant abnormality is seen within the arteries of the neck. 3. No area of abnormal intracranial enhancement. Large right parietal intraparenchymal hematoma better evaluated on dedicated CT head study from the same day. Labs 10/06/24 04:55 10/06/24 04:55 Labs: Laboratory Results - last 24 hr 10/06/24 14:15 Urine Color Yellow Urine Appearance Clear Urine pH 6.0 Ur Specific Ambia 1.020 Urine Protein 2+ H Urine Glucose (UA) Negative Urine Ketones Negative Urine Occult Blood 1+ H Urine Nitrate Negative Urine Bilirubin Negative Urine Urobilinogen 1.0 Ur Leukocyte Esterase Negative Urine RBC 1-5/hpf Urine WBC 0-1/hpf Ur Squamous Epith Cells 1-5 /hpf Urine Bacteria Few (2-10) H Urine Mucus 1+ H Ur Culture Indicated? Cult not indicated Vol Urine Centrifuged 10ml (spun) [facility] Social History household members: other Smoking Status: Former smoker Assessment & Plan Assessment & Plan narrative: Right Hemispheric Intraparenchymal Hemorrhage in the same region as prior right hemispheric stroke, present on admission and active. - comfort care, in accordance with patient's and son's wishes - Keppra load 1 g followed by 500 mg IV q.12 hours - prn Ativan for seizures - morphine for pain - poor prognosis PLAN: -Met with family, continue current course. Code status: Do not resuscitate/comfort care Anticipate expiration in the hospital, likely within 24 hours or October 08. Time-Based Coding :: [TOTAL MINUTES] spent with patient and on the chart (including review of chart, obtaining history, exam, reviewing outside data, placing orders, documenting exam and treatment plan, and counseling patient) on [DATE].
[2024-10-07] MEDS: levETIRAcetam 500 MG in SODIUM CHLORIDE 0.9% 100 ML 420 MG IV ×2 (09:49→21:10)
--- NOTE | 2024-10-07 13:22 | SLP.IPNOTE ---
Order received and chart reviewed. Per progress notes, expiration anticipated in the hospital, likely within 24 hours or October 08. Pt is currently on comfort care and prognosis is very poor. Will closely monitor for changes in overall condition. Discussed with MD and plan to discharge ST order and follow up as needed.
--- NOTE | 2024-10-07 14:51 | CM.DPNOTE ---
DCP note PRIVATE DUTY LPN reviewed EMR. Per hospitalist PN, anticipated to pass within 24HRS from today. no stable for transfer to home with hospice at this time. Canceled speech eval. Family has been at bedside most of the day. PRIVATE DUTY LPN attempted to meet with family x2, either with therapy dogs or out of room at the time. Per RN, pt sometimes wants some ice chips throughout the day. P: pt anticipated to pass within the next 24hrs. CM team will continue to follow closely for any additional needs. LETY Mejias
[2024-10-07] MEDS: LORazepam 2 MG/ML INJ 1 MG IV (17:29)
[2024-10-07] MEDS: MORPHINE 4 MG/ML INJ 3 MG IV (18:32)
[2024-10-08] MEDS: MORPHINE 4 MG/ML INJ 3 MG IV ×4 (01:01→16:41)
--- NOTE | 2024-10-08 07:26 | PM.PN.1 ---
Subjective Subjective Interval history: Summary: The patient was brought in for AMS and diagnosed with a right hemispheric brain bleed. He was on comfort measures. He has 3 sons, 2 have been at the hospital. S: He was more awake today and looking around. He was speaking a little bit. Exam Vital Signs (past 8 hours): Oxygen Delivery Method Room Air Narrative Exam Narrative: NAD, opens eyes. Lungs are clear, normal rate and effort. Heart is regular, without murmur. Abdomen is soft. No leg edema. Objective Labs 10/06/24 04:55 10/06/24 04:55 [facility] Social History household members: other Smoking Status: Former smoker Assessment & Plan Assessment & Plan narrative: Right Hemispheric Intraparenchymal Hemorrhage in the same region as prior right hemispheric stroke, present on admission and active. - comfort care, in accordance with patient's and son's wishes - Keppra load 1 g followed by 500 mg IV q.12 hours - prn Ativan for seizures - morphine for pain - poor prognosis PLAN: -repeat brain CT to assess the degree of bleeding and progression Code status: Do not resuscitate/comfort care Anticipate expiration in the hospital, likely within 24 hours or October 08. Time-Based Coding :: [TOTAL MINUTES] spent with patient and on the chart (including review of chart, obtaining history, exam, reviewing outside data, placing orders, documenting exam and treatment plan, and counseling patient) on [DATE].
[2024-10-08 08:00] VITALS: BP 122/57; PULSE 59; RESP 18; TEMP 36.4; O2SAT 97
[2024-10-08] MEDS: levETIRAcetam 500 MG in SODIUM CHLORIDE 0.9% 100 ML 420 MG IV ×2 (09:49→20:59)
--- NOTE | 2024-10-08 10:30 | DI.CT.S_ITS ---
PROCEDURE: CT HEAD/BRAIN WO CON INDICATIONS: Brain bleed follow up TECHNIQUE: Noncontrast 4.5 mm thick angled axial sections acquired from the foramen magnum to the vertex, with coronal and sagittal reformats. For radiation dose reduction, the following was used: automated exposure control, adjustment of mA and/or kV according to patient size. COMPARISON: [facility], CT, CT STROKE, 10/06/2024, 5:19. FINDINGS: Image quality: Diagnostic. CSF spaces: Basal cisterns are patent. No extra-axial fluid collections. The ventricles are symmetric in size and shape. Minimal hemorrhage remains in the occipital horns bilaterally. Brain: Previous right posterior parietal hemorrhage is mildly more prominent measuring 5.0 x 4.9 by 6.1 cm compared to 4.5 x 4.2 by 4.9 cm. There is surrounding edema. 3-4 right to left midline shift is unchanged.. There is cerebral volume loss for age, with resultant ventricular and sulcal prominence. There are periventricular and deep white matter chronic small vessel ischemic changes. There is intracranial internal carotid artery atherosclerosis. Basal cisterns remain patent. Skull and face: Calvarium and visualized facial bones appear intact, without suspicious lesions. Sinuses: Visualized sinuses and mastoids are clear. IMPRESSION: Mild increased prominence of right parietal intraparenchymal hemorrhage. Midline shift is unchanged. Basal cisterns remain patent. Intraventricular hemorrhage appears stable. Dictated by: Starr Sweet M.D. on 10/08/2024 at 11:08 Approved by: Starr Sweet M.D. on 10/08/2024 at 11:11
[2024-10-08] MEDS: LORazepam 2 MG/ML INJ 1 MG IV (11:42)
[2024-10-09 08:00] VITALS: BP 132/68; PULSE 87; RESP 23; TEMP 36.8; O2SAT 96
[2024-10-09] MEDS: levETIRAcetam 500 MG in SODIUM CHLORIDE 0.9% 100 ML 420 MG IV ×2 (09:45→20:17)
[2024-10-09] MEDS: MORPHINE 4 MG/ML INJ 3 MG IV ×2 (10:49→20:17)
--- NOTE | 2024-10-09 11:30 | PC.NURSE ---
Day shift: Dr Saavedra aware that IV Keppra dose was not able to infuse completely. IV site patent and flushes but only when arm is straight. Pt unwilling to keep rt arm straight. Option for another IV being placed but Pt will likely not tolerate this. IV Ativan push ordered per Dr Saavedra in place of Keppra in needed. Family/friends at bedside for support.
--- NOTE | 2024-10-09 13:24 | CM.DPC ---
DCP Cont. Reviewed EMR and team rounds for status updates. Family has now decided to have pt d/c back to [facility] with [facility] in place. This CALL SPECIALIST will contact Debora at [facility] once we know from Hospice what day they can admit, and will also assist with coordination of the equipment delivery. Pt appears comfortable and was actually semi-alert today w/family.
--- NOTE | 2024-10-09 15:46 | PM.PN.1 ---
Subjective Subjective Interval history: Summary: The patient was brought in for AMS and diagnosed with a right hemispheric brain bleed. He was on comfort measures. He has 3 sons, 2 have been at the hospital. S: Slightly more alert today, recognizes family, responds to questions appropriately. Exam Vital Signs (past 8 hours): - 10/09/24 08:00 Temperature 98.3 F Pulse Rate 87 Respiratory Rate 23 Blood Pressure 132/68 Pulse Oximetry 96 Oxygen Flow Rate 0 Oxygen Delivery Method Room Air Oxygen Flow Rate 0 Narrative Exam Narrative: Gen: elderly male, no acute distress HEENT: dry mucous membranes and dry lips with peeling Pulm: CTA b/l, shallow respirations CV: RRR no m/r/g Abd: S NT ND Ext: No edema. Neuro: alert, oriented to name, but not location or time. recognizes family at bedside. follows commands. Objective Labs 10/06/24 04:55 10/06/24 04:55 [facility] Social History household members: other Smoking Status: Former smoker Assessment & Plan Assessment & Plan narrative: Right Hemispheric Intraparenchymal Hemorrhage in the same region as prior right hemispheric stroke, present on admission and active. - comfort care, in accordance with patient's and son's wishes - continue IV keppra while in the hospital. - prn Ativan for seizures - morphine for pain - poor prognosis PLAN: -home with hospice once case management able to arrange at SNF. He has a very slow improvement in his mentation thus far, it is not clear what, if any, function he may regain. He still has great difficulty with swallow at this time and hospice is appropriate. -if he improves, consider ELECTRONIC PREPRESS SYSTEM OPERATOR eval -for now continue diet for comfort purposes, with understanding there is an aspiration risk with every swallow. -will stop aspirin and simvastatin. Code status: Do not resuscitate/comfort care Dispo: pending SNF on hospice. possibly as soon as tomorrow. Time-Based Coding :: [TOTAL MINUTES] spent with patient and on the chart (including review of chart, obtaining history, exam, reviewing outside data, placing orders, documenting exam and treatment plan, and counseling patient) on [DATE].
[2024-10-10] MEDS: MORPHINE 4 MG/ML INJ 3 MG IV (05:10)
[2024-10-10] MEDS: levETIRAcetam 500 MG in SODIUM CHLORIDE 0.9% 100 ML 420 MG IV ×2 (09:04→21:25)
--- NOTE | 2024-10-10 12:21 | PM.PN.1 ---
Subjective Subjective Interval history: Summary: The patient was brought in for AMS and diagnosed with a right hemispheric brain bleed. He was on comfort measures. He has 3 sons, 2 have been at the hospital. S: Was able to eat a small amount yesterday of yogurt, applesauce, he really wanted pepsi. Today he is less alert, falling asleep easily, appears comfortable. Exam Vital Signs (past 8 hours): Oxygen Delivery Method Room Air Oxygen Flow Rate 0 Narrative Exam Narrative: Gen: elderly male, no acute distress HEENT: dry mucous membranes and dry lips with peeling Pulm: CTA b/l, shallow respirations CV: RRR no m/r/g Abd: S NT ND Ext: No edema. Neuro: alert but sleepy, oriented to name, but not location or time. Falls asleep easily today. recognizes family at bedside. follows commands. left hemiparesis, minimal ability to wiggle left toes today. Objective Labs 10/06/24 04:55 10/06/24 04:55 PFSH Social History household members: other Smoking Status: Former smoker Assessment & Plan Assessment & Plan narrative: Right Hemispheric Intraparenchymal Hemorrhage in the same region as prior right hemispheric stroke, present on admission and active. - comfort care, in accordance with patient's and son's wishes - continue IV keppra while in the hospital. - prn Ativan for seizures - morphine for pain PLAN: -home with hospice once case management able to arrange at SNF. He has a very slow improvement in his mentation thus far, it is not clear what, if any, function he may regain. He still has great difficulty with swallow at this time and hospice is appropriate. -if he improves, consider DESTINATION COORDINATOR eval. -for now continue diet for comfort purposes, with understanding there is an aspiration risk with every swallow. He waxes and wanes with his mentation, okay for diet when he is more alert for comfort. -will stop aspirin and simvastatin. Code status: Do not resuscitate/comfort care Dispo: pending SNF on hospice. Time-Based Coding :: [TOTAL MINUTES] spent with patient and on the chart (including review of chart, obtaining history, exam, reviewing outside data, placing orders, documenting exam and treatment plan, and counseling patient) on [DATE].
[2024-10-10 19:48] VITALS: PULSE 82; RESP 16; TEMP 36.6; O2SAT 99
--- NOTE | 2024-10-11 06:34 | PC.NURSE ---
Pt awake, alert to self, place. Answering questions appropriately. Tolerated one container of yogurt, ice cream, and ice chips.
[2024-10-11] MEDS: levETIRAcetam 500 MG in SODIUM CHLORIDE 0.9% 100 ML 420 MG IV ×2 (09:00→21:33)
--- NOTE | 2024-10-11 10:34 | CM.DPC ---
DCP Cont. Reviewed EMR and team rounds for status updates. Plan is for DME to be delivered to [facility] by [facility] on Monday, Siena from [facility] will come over and do a bedside assessment on Monday also, followed by BLS transport at d/c for pt to return. Hospice will admit him that afternoon. Family updated and are satisfied with this plan. *Will need to arrange for BLS transport early Monday morning. Primary contact for the pt is his son, Timothy .
--- NOTE | 2024-10-11 12:21 | P.PN_ITS ---
Subjective Subjective Interval history: Summary: The patient was brought in for AMS and diagnosed with a right hemispheric brain bleed. He was on comfort measures. He has 3 sons, 2 have been at the hospital. S: Continues to eat intermittently, still coughing some with this. SNF placement not available until Monday Exam Vital Signs (past 8 hours): Oxygen Delivery Method Room Air Oxygen Flow Rate 0 Narrative Exam Narrative: Gen: elderly male, no acute distress Objective Labs 10/06/24 04:55 10/06/24 04:55 PFSH Social History household members: other Smoking Status: Former smoker Assessment & Plan Assessment & Plan narrative: Right Hemispheric Intraparenchymal Hemorrhage in the same region as prior right hemispheric stroke, present on admission and active. - comfort care, in accordance with patient's and son's wishes - continue IV keppra while in the hospital. - prn Ativan for seizures - morphine for pain PLAN: -home with hospice once case management able to arrange at SNF, currently planned for Monday. He has a very slow improvement in his mentation thus far, it is not clear what, if any, function he may regain. He still has great difficulty with swallow at this time and hospice is appropriate. -if he improves, consider MIDDLE SCHOOL READING TEACHER eval. -for now continue diet for comfort purposes, with understanding there is an aspiration risk with every swallow. He waxes and wanes with his mentation, okay for diet when he is more alert for comfort. -will stop aspirin and simvastatin. Code status: Do not resuscitate/comfort care Dispo: pending SNF on hospice, likely on Monday. Time-Based Coding :: [TOTAL MINUTES] spent with patient and on the chart (including review of chart, obtaining history, exam, reviewing outside data, placing orders, documenting exam and treatment plan, and counseling patient) on [DATE].
[2024-10-11 19:00] VITALS: BP 134/74; PULSE 74; RESP 19; TEMP 37; O2SAT 96
--- NOTE | 2024-10-12 07:42 | P.PN_ITS ---
Subjective Subjective Date Patient Seen: 10/12/24 Interval history: He is seen in his room today. His oldest son is visiting. He is unable to answer most questions but is alert and interactive. He has a Parks catheter and left hemiparesis. He is expecting to discharge to [facility] on hospice in 2 more days. Exam Vital Signs (past 8 hours): Oxygen Delivery Method Room Air Oxygen Flow Rate 0 Narrative Exam Narrative: Alert and oriented to name. No apparent distress Left hemiparesis Heart is regular rate and rhythm without murmur Lungs are clear to auscultation bilaterally Extremities have no ankle edema Parks catheter present. Objective Labs 10/06/24 04:55 10/06/24 04:55 [facility] Social History household members: other Smoking Status: Former smoker Assessment & Plan Assessment & Plan narrative: Right Hemispheric Intraparenchymal Hemorrhage in the same region as prior right hemispheric stroke, present on admission and active. - comfort care, in accordance with patient's and son's wishes - continue IV keppra while in the hospital. - prn Ativan for seizures - morphine for pain PLAN: -home to [facility] with hospice, currently planned for Monday. He has a very slow improvement in his mentation thus far, it is not clear what, if any, function he may regain. He still has great difficulty with swallow at this time and hospice is appropriate. -if he improves, consider ACID ADJUSTER eval. -for now continue diet for comfort purposes, with understanding there is an aspiration risk with every swallow. He waxes and wanes with his mentation, okay for diet when he is more alert for comfort. -stopped aspirin and simvastatin. Code status: Do not resuscitate/comfort care Dispo: pending LONG-TERM on hospice, likely on Monday. Time-Based Coding :: [TOTAL MINUTES] spent with patient and on the chart (including review of chart, obtaining history, exam, reviewing outside data, placing orders, documenting exam and treatment plan, and counseling patient) on [DATE].
[2024-10-12] MEDS: levETIRAcetam 500 MG in SODIUM CHLORIDE 0.9% 100 ML 420 MG IV ×2 (08:33→20:52)
[2024-10-12 08:40] VITALS: PULSE 84; RESP 20; TEMP 36.4; O2SAT 96
--- NOTE | 2024-10-12 15:08 | CM.DPC ---
DCP Cont: Per MD, pt with family bedside and pt able to open eyes and some responsiveness and family confirms plan is return to [facility] Mon when RN available for bedside assess and admit Monday. DAVID called [facility] to confirm DME delivery to happen Mon and what time their RN can do SOC and on-call staff relaying information to their molder feeder to confirm pt is on their schedule for Monday. SW faxed [facility] and [facility] updated MD notes to review. BLS form started in case non-emergency stretcher transport needed at d/c but awaiting confirmation of time to schedule transport. Mariana Borrego MSW
[2024-10-12 22:00] VITALS: BP 117/75; PULSE 86; RESP 24; TEMP 36.8; O2SAT 96
--- NOTE | 2024-10-13 07:24 | PM.PN.1 ---
Subjective Subjective Date Patient Seen: 10/13/24 Interval history: He is seen in his room here today. His son is at bedside. He is less engaged and appears more confused. He is planning transfer to his assisted living facility after their re-evaluation tomorrow with hospice care. He continues to easily choke on any liquid that he takes in. Exam Vital Signs (past 8 hours): Oxygen Delivery Method Room Air Oxygen Flow Rate 0 Narrative Exam Narrative: Alert but not oriented. Does not engage. Looks fully awake. Heart is regular rate and rhythm without murmur Lungs are clear to auscultation bilaterally There is no ankle edema. Objective Labs 10/06/24 04:55 10/06/24 04:55 [facility] Social History household members: other Smoking Status: Former smoker Assessment & Plan Assessment & Plan narrative: Right Hemispheric Intraparenchymal Hemorrhage in the same region as prior right hemispheric stroke, present on admission and active. - comfort care, in accordance with patient's and son's wishes - continue IV keppra while in the hospital. - prn Ativan for seizures - morphine for pain PLAN: -home to [facility] with hospice, currently planned for Monday. He has a very slow improvement in his mentation thus far, it is not clear what, if any, function he may regain. He still has great difficulty with swallow at this time and hospice is appropriate. -if he improves, consider ASSET AVAILABILITY LEADER eval. -for now continue diet for comfort purposes, with understanding there is an aspiration risk with every swallow. He waxes and wanes with his mentation, okay for diet when he is more alert for comfort. -stopped aspirin and simvastatin. Code status: Do not resuscitate/comfort care Dispo: pending HALFWAY on hospice, likely on Monday. Time-Based Coding :: [TOTAL MINUTES] spent with patient and on the chart (including review of chart, obtaining history, exam, reviewing outside data, placing orders, documenting exam and treatment plan, and counseling patient) on [DATE].
[2024-10-13] MEDS: levETIRAcetam 500 MG in SODIUM CHLORIDE 0.9% 100 ML 420 MG IV ×2 (08:48→20:30)
[2024-10-13 08:50] VITALS: BP 113/74; PULSE 90; RESP 19; TEMP 36.7; O2SAT 96
--- NOTE | 2024-10-13 10:33 | PC.NURSE ---
Pt awake for son taking fluids and easily choking dr. Irby here and is aware- reminded pt and son to take smaller amts and tuck chin and will thicken fluids more, able to eat yogurt with difficulty, repositioned denies pain.
--- NOTE | 2024-10-13 15:57 | PC.NURSE ---
Patient is visiting with his son, he has been confused today. Talking about different types of foods and drinks. Patient has a rash on his chin and sides of face, will notify . It does not seem to be affecting patient, as he is sleeping.
[2024-10-13 20:56] VITALS: BP 106/62; PULSE 88; RESP 17; TEMP 37.3; O2SAT 96
--- NOTE | 2024-10-14 01:22 | PC.NURSE ---
Assumed care of patient at 0120.
[2024-10-14 08:31] VITALS: BP 139/65; PULSE 97; RESP 18; TEMP 36.6; O2SAT 96
[2024-10-14] MEDS: levETIRAcetam 500 MG in SODIUM CHLORIDE 0.9% 100 ML 420 MG IV (10:13)
[2024-10-14] MEDS: KETOCONAZOLE 2% CREAM 15 GM 1 APPLIC TOP (10:13)
--- NOTE | 2024-10-14 10:22 | P.DS_ITS ---
History of Present Illness History of Present Illness Date Patient Seen: 10/14/24 Time Patient Seen: 10:22 Date of Onset of Symptoms: 10/06/24 Chief complaint: unresponsive Narrative: Per admitting provider, 83 y/o brought by an ambulance with altered mental status and unresponsiveness and diagnosed with large right hemispheric brain bleed, midline shift of 4 mm. PMH of CVA with Lt hemiparesis. Admitted for comfort care. Interval history: The patient is son Diogo holds power of trust and estates attorney and states that his father has had progressive decline in the past year, with increased confusion and delusional thinking. 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 Last night he was found to be gurgling with blood coming out of his mouth and increased confusion, and was brought to the emergency department, where he had decreased level of responsiveness. He is since woken up and answers simple questions, stating his name, able to state his son's name, but otherwise with limited understanding of his current situation. It was felt in the emergency department that he may have had a seizure leading to his initial presentation and was given 1 g of IV levetiracetam. Family still wishes comfort care measures after discussion of his current clinical status Discharge Providers Provider Date of admission: 10/06/24 06:24 Discharge Date: 10/14/24 Consults: 10/06/24 10:18 Consult to Speech Therapy Evaluate & Treat Comment: Physician Instructions: Evaluate and treat Discharge provider: Nando Saavedra DO Summary Hospital Course Discharge Diagnosis: Right Hemispheric Intraparenchymal Hemorrhage with midline shift in the same region as prior right hemispheric stroke, present on admission and active. HLD Dementia without behavioral disturbance Hospital Course: This is an 83 year old male who was admitted with comfort care measures with a R intraparenchymal hemorrhage with 4mm of midline shift. He initially appeared imminent and was minimally responsive, however repeat head CT stabilized and his mentation slowly improved. He slowly became more alert, recognizing family, and responding appropriately to questions though he would wax and wane thoughout the day. He continued to cough with meals, which can continue for comfort. His last dose of morphine was actually on 12/12. After case management evaluation, patient was discharged to SNF on 10/14 with hospice to open shortly after arrival. He continues to have left hemiparesis due to his prior stroke. Time Spent with Patient Time spent: Greater than 30 minutes Exam Vital Signs (past 8 hours): - 10/14/24 08:31 Temperature 97.8 F Pulse Rate 97 H Respiratory Rate 18 Blood Pressure 139/65 Pulse Oximetry 96 Oxygen Flow Rate 0 Oxygen Delivery Method Room Air Oxygen Flow Rate 0 Narrative Exam Narrative: Alert but not oriented. Does not engage. Looks fully awake. Heart is regular rate and rhythm without murmur Lungs are clear to auscultation bilaterally There is no ankle edema. Objective Labs 10/06/24 04:55 10/06/24 04:55 [facility] Social History household members: other Smoking Status: Former smoker Discharge Plan Discharge Plan Patient Disposition: Hospice - Home Transfer to: [facility] Living Provider Discharge Comment: 83 M admitted with intracranial hemorrhage, comfort care. Dysphagia diet for comfort. Discharge on hospice. Discharge orders & Medications Prescriptions: New acetaminophen [Children's Acetaminophen] 160 mg/5 mL Suspension 650 mg PO Q4HR PRN (Reason: Fever/Mild Pain (1-3)) Qty: 120 0RF ketoconazole 2 % Cream 1 applic topical DAILY Qty: 2 0RF lorazepam [Lorazepam Intensol] 2 mg/mL Concentrate 1 mg PO Q1HR PRN (Reason: seizure activity) Qty: 30 0RF morphine 10 mg/5 mL solution 10 mg PO Q4H PRN (Reason: dyspnea) Qty: 100 0RF Continued Ear Drops (carbamide peroxide) 6.5 % drops 5 drp EAR-BOTH 2XD Discontinued acetaminophen 500 mg tablet 500 mg PO 4XD simvastatin 40 mg tablet 40 mg PO ONCE PM aspirin 325 mg tablet,delayed release (DR/EC) 325 mg PO DAILY cholecalciferol (vitamin D3) [Vitamin D3] 25 mcg (1,000 unit) tablet 25 mcg PO DAILY Diet/Activity/Treatments Diet: Diet as Tolerated Diet comment: dysphagia for comfort Activity: No restrictions Visit Report/Discharge Packet Instructions: Naloxone for Opiate Overdose - LOCATED WITHIN [facility] Stand Alone Forms: Patient Portal/API, Stroke Signs & Symptoms, Naloxone Standing Order WADO
--- NOTE | 2024-10-14 10:33 | CM.DPC ---
DCP Discharge [facility] with [facility] Per MD, pt remains stable for d/c back to Assisted Living today with [facility] and discharge completed. SW called [facility] and spoke to Debora Shipley and she confirms their RN will complete bedside assessment around [id number] today and DME was already delivered by [facility] and SW updated that stretcher transport scheduled for 1300 and [facility] SOC is between [id number] today. Debora Shipley confirms they can accept pt back and to fax d/c packet to their main fax number. DAVID called [facility] and left update and faxed d/c summary to review. Updated RN and research affiliate and BLS form already completed and placed on chart. Plan: SW to fax d/c packet to [facility] today prior to 1300 stretcher transport by [facility] to [facility] with [facility] to start at 1400 today. LETY Lisa
== END 2024-10-14 13:00 | disposition hospice, home (50) | DRG 64 ==
LOC: ED 06:05 → AC 06:25
PROVIDERS: Admitting Provider Internal Medicine; Emergency Provider Student in an Organized Health Care Education/Training Program; Referring Provider Student in an Organized Health Care Education/Training Program; Visit Provider Internal Medicine
DX: I61.2 Nontraumatic intracerebral hemorrhage in hemisphere, unspecified (principal); G93.6 Cerebral edema; I69.354 Hemiplegia and hemiparesis following cerebral infarction affecting left non-dominant side; R13.10 Dysphagia, unspecified; B35.0 Tinea barbae and tinea capitis; E78.5 Hyperlipidemia, unspecified; R29.714 NIHSS score 14; R29.719 NIHSS score 19; Z51.5 Encounter for palliative care; Z66 Do not resuscitate; Z87.891 Personal history of nicotine dependence
CPT/HCPCS: 70450; 70496; 70498; 80053; 80320; 81001; 82550; 82962; 84484; 85025; 85610; 85730; 99284; 99285; J1953; J2060; J2270; Q9967